=== PATIENT | female | born 1970 | race Caucasian/White ===

== ENCOUNTER 2016-12-31 21:10 | Emergency (ER) | payer SELFPAY ==
[~2016-12-31] VITALS: Ht 160 cm; Wt 82.0 kg
[~2016-12-31 21:10] MED LIST: ASPI81TA11 PO; METF500 PO; METO50TA PO; PERC5TAB12 PO; PRAV10 PO
[2016-12-31 21:11] VITALS: BP 133/68; PULSE 82; RESP 16; TEMP 97.7; O2SAT 99
--- NOTE | 2016-12-31 22:26 | PD ---
HPI Chief Complaint: Injury Time Seen by Provider: 22:00 Travel History International Travel<30 days: No Contact w/Intl Traveler<30days: No Traveled to known affect area: No History of Present Illness HPI Patient comes in for evaluation of left wrist pain ongoing for 5-6 weeks. Patient states injury initially occurred over a month ago she went to fall and caught herself with her left hand causing pain in her left wrist. Patient states she is seen at different ER approximately 3 days after initial injury had x-rays done and was told that she had sprained it. Patient was placed in a splint that she has since removed. Patient continues using her wrist in doing heavy lifting at her job. Denies any numbness and tingling, fevers, or new injuries. Pain is worse with certain movement. Patient describes pain as sharp stabbing like in nature over the ulnar aspect of her left wrist. Pain radiates proximally. History Past Medical Histgory Tetanus Vaccination: < 5 Years LMP: 12/14/16 Social History Alcohol Use: Yes (SOCIALLY) Tobacco Use: Yes (1PPD) Allergies-Medications (Allergen,Severity, Reaction): Coded Allergies: Plavix (Verified Adverse Reaction, Severe, Hives, 12/31/16) Reported Meds & Prescriptions Reported Meds & Active Scripts Active Review of Systems Except as stated in HPI: all other systems reviewed are Neg Physical Exam Narrative GENERAL: Well-developed, overly nourished, in no acute distress, and non-ill appearing. SKIN: Warm and dry. HEAD: Atraumatic. Normocephalic. EYES: Pupils equal and round. EOMI. No scleral icterus. No injection or drainage. ENT: No nasal bleeding or discharge. Mucous membranes pink and moist. NECK: Trachea midline. Supple. No nuclear rigidity. CARDIOVASCULAR: Radial pulses 2+, intact, equal bilaterally. Capillary refill less than 2 seconds. RESPIRATORY: No accessory muscle use. No respiratory distress. MUSCULOSKELETAL: No obvious deformities. No clubbing. No cyanosis. No edema. Full range of motion. Wrist: FROM and equal BL with passive flexion, extension, and pronation/supination. Capillary refill less than 2 seconds distal to injury and equal BL. FROM distal to injury and equal BL. Strength distal to injury equal BL. NV intact distal to injury. Flexion and extension of thumb equal BL. Equal strength and movement with abduction/adductions of BL fingers. Animal Ride Manager strength equal BL. No tenderness to the anatomical snuffbox. Patient reports tenderness to palpation over ulnar aspect of left wrist. NEUROLOGICAL: Awake and alert. No obvious cranial nerve deficits. Motor grossly within normal limits. Normal speech. PSYCHIATRIC: Appropriate mood and affect; insight and judgment normal. Data Data Last Documented VS Vital Signs Date Time Temp Pulse Resp B/P Pulse Ox O2 Delivery O2 Flow Rate FiO2 12/31/16 22:08 16 12/31/16 21:11 97.7 82 133/68 99 MDM Medical Screen Exam Complete: Yes Emergency Medical Condition: No Narrative Course History and physical exam findings are not consistent with an emergent medical condition. She was given the option of receiving additional care, but has declined. Therefore the appropriate counseling recommendations were discussed with the patient and she was instructed to follow-up with her primary care physician as soon as possible for reevaluation. Patient was also informed of community resources from which she can obtain additional care. She is agreeable and verbalizes an understanding of the proposed plan. The patient states she will immediately return to the emergency department if her current complaints do not improve, new symptoms arise, or emergent condition develops. Patient ambulated out of the emergency department without difficulty. Primary Impression: Encounter for medical screening examination Disposition: [facility]-ED USE ONLY Condition: Stable Christopher Odom Dec 31, 2016 22:26
== END 2016-12-31 22:18 | disposition left against medical advice (07) ==
LOC: NEPB 21:10
DX: M25.532 Pain in left wrist (principal); W18.40XD Slipping, tripping and stumbling without falling, unspecified, subsequent encounter
CPT/HCPCS: 99281

== ENCOUNTER 2017-07-22 12:24 | Emergency (ER) | payer OTHER ==
[~2017-07-22] VITALS: Ht 157.5 cm; Wt 83.5 kg
[~2017-07-22 12:24] MED LIST changes: -ASPI81TA11 PO; +LIPI20TA PO; -METF500 PO; +METF500T PO; +PANT40TA3 PO; -PRAV10 PO; +TICA1TAB PO
[2017-07-22 12:42] VITALS: BP 123/58; PULSE 74; RESP 16; TEMP 98.3; O2SAT 98
--- NOTE | 2017-07-22 14:40 | RADRPT ---
EXAM DATE/TIME: 07/22/2017 13:50 [facility] COMPARISON: No previous studies available for comparison. INDICATIONS : Right shoulder pain climbing on bed MEDICAL HISTORY : None. SURGICAL HISTORY : None. ENCOUNTER: Initial ACUITY: 3 days PAIN SCORE: 9/10 LOCATION: Right shoulder joint FINDINGS: Multiple view examination of the right shoulder demonstrates no evidence of fracture or dislocation. The glenohumeral and acromioclavicular joints are maintained. There is normal range of motion betwe en internal and external rotation. Bony mineralization is normal. CONCLUSION: Unremarkable examination of the right shoulder. Vishal Renteria Jr., MD on July 22, 2017 at 14:38 Board Certified Radiologist. This report was verified electronically.
--- NOTE | 2017-07-22 14:41 | PD ---
HPI . Right shoulder pain Chief Complaint: Injury Time Seen by Provider: 13:16 Travel History International Travel<30 days: No Contact w/Intl Traveler<30days: No Traveled to known affect area: No History of Present Illness HPI 46-year-old female presents emergency department for evaluation of right shoulder pain that first started 3 days ago when she was climbing up into a bed. Patient states she heard a loud pop and it has been painful ever since. Patient has limited range of motion of the right upper extremity with forward flexion and abduction related to pain. Pain is reproducible with palpation. Neurovascularly the right upper extremity is intact. There is no erythema, obvious deformity, ecchymosis or edema. Patient is on blood thinner Brilinta. She does bruise easily. Patient denies any other physiological complaints at this time. PFSH Past Medical History Hx Anticoagulant Therapy: Yes Arthritis: Yes (DDD) Heart Rhythm Problems: Yes (SVT) Cardiovascular Problems: Yes (PA, CAD, STENTS) Coronary Artery Disease: Yes Diabetes: Yes Patient Takes Glucophage: Yes Diminished Hearing: No Musculoskeletal: Yes (SCOLIOSIS) Immunizations Current: Yes Influenza Vaccination: Yes ?: Not LMP: LAST WEEK Past Surgical History Coronary Stent: Yes Social History Alcohol Use: No (DENIES) Tobacco Use: Yes (1PPD) Substance Use: No Allergies-Medications (Allergen,Severity, Reaction): Coded Allergies: clopidogrel (Verified Adverse Reaction, Severe, Hives, 07/22/17) Reported Meds & Prescriptions Reported Meds & Active Scripts Active Reported Percocet (Oxycodone-Acetaminophen) 5-325 mg Tab 1 Tab PO Q6H PRN Brilinta (Ticagrelor) 60 Mg Tab 60 Mg PO BID Metoprolol Tartrate 50 Mg Tab 50 Mg PO DAILY Lipitor (Atorvastatin Calcium) 20 Mg Tab 20 Mg PO HS Pantoprazole (Pantoprazole Sodium) 40 Mg Tab 40 Mg PO DAILY Metformin (Metformin HCl) 500 Mg Tab 500 Mg PO DAILY With a meal Review of Systems Except as stated in HPI: all other systems reviewed are Neg Physical Exam Narrative GENERAL: Well-nourished, well-developed 46-year-old female patient in no acute distress. Nontoxic appearing. SKIN: Focused skin assessment warm/dry. HEAD: Normocephalic. Atraumatic. EYES: No scleral icterus. No injection or drainage. NECK: Supple, trachea midline. No JVD or lymphadenopathy. CARDIOVASCULAR: Regular rate and rhythm without murmurs, gallops, or rubs. RESPIRATORY: Breath sounds equal bilaterally. No accessory muscle use. GASTROINTESTINAL: Abdomen soft, non-tender, nondistended. MUSCULOSKELETAL: Limited range of motion in the right upper extremity with full word flexion and abduction. No ecchymosis, cyanosis, or edema. BACK: Nontender without obvious deformity. No CVA tenderness. Data Data Last Documented VS Vital Signs Date Time Temp Pulse Resp B/P (MAP) Pulse Ox O2 Delivery O2 Flow Rate FiO2 07/22/17 12:42 98.3 74 16 123/58 (79) 98 Orders Orders Shoulder, Complete (>2vws) (07/22/17 13:17) Ice/Cold Pack (07/22/17 13:17) Ed Discharge Order (07/22/17 14:45) Splint Or Brace Apply/Monitor (07/22/17 14:57) MDM Medical Decision Making Medical Screen Exam Complete: Yes Emergency Medical Condition: Yes Differential Diagnosis Differential diagnoses include but not limited to contusion, dislocation, fracture, shoulder pain, septic arthritis, ligament injury, tendon injury Narrative Course 46-year-old female presents to the emergency room for evaluation of right shoulder pain that occurred 3 days ago. Shoulder x-ray ordered and pending. Ice applied to the right shoulder. X-ray of the shoulder is unremarkable. Patient states she does not want any medication for pain or an anti-inflammatory. Based on patient's symptoms, clinical presentation, radiological results, vital sign review and physical exam it is not necessary to admit the patient to the hospital or keep the patient in the emergency department for further evaluation. Patient will be given a right arm sling and discharged home with instructions to follow up with her primary care or an orthopedist. Diagnosis Primary Impression: Acute pain of right shoulder Patient Instructions: General Instructions, Shoulder Pain (ED) Additional Instructions: Please return to emergency department if your symptoms return or worsen. Follow up with your primary care provider or an orthopedist. Use sling during the day. Ensure you take the sling off occasionally and move the joint to prevent the joint from becoming stiff. May use [id number] Motrin as needed for pain or swelling. May use ice as needed for pain or swelling. Disposition: 01 DISCHARGE HOME Condition: Stable Cary Wilde Jul 22, 2017 14:41
== END 2017-07-22 15:00 | disposition home or self-care (01) ==
LOC: PHEFT 12:24
DX: M25.511 Pain in right shoulder (principal); E11.9 Type 2 diabetes mellitus without complications; Z72.0 Tobacco use; Z79.01 Long term (current) use of anticoagulants
CPT/HCPCS: 73030; 99283

== ENCOUNTER → 2017-08-18 | Day surgery (SDC) | payer OTHER ==
[~2017-08-18] VITALS: Ht 157.5 cm; Wt 83.0 kg
[~2017-08-18] MED LIST changes: +ASPI-516 CHEW; +BUPIVACAINE HCL PF 0.5% 30 ML VIAL INFIL ONE; +CHLORHEXIDINE GLUCONATE 2 % 1 PACK (2 CLOTHS) TOPICAL PRN; +FAMOTIDINE 20 MG/2 ML VIAL ONE; +INSULIN HUMAN REGULAR 1,000 UNITS/10 ML VIAL SQ PRN; +LACTATED RINGER'S 1000 ML IV PRN; +LIDOCAINE HCL 2% 20 ML VIAL INFIL ONE; +METOPROLOL TARTRATE 25 MG TAB PO PRN; +MIDAZOLAM HCL 2 MG/2 ML VIAL ONE; +NEOMYCIN/POLYMYXIN 1 ML G.U. IRRIGANT IRRIGATION ONE; +POVIDONE IODINE 5% (ANTISEPSIS KIT) 4 APPLICATIONS EACH NARE PRN; +SODIUM CHLORID 0.9% 500 ML IV PRN; +ceFAZolin 2 GM PREMIX 50 ML IV SCH
[2017-08-18 12:45] VITALS: BP 117/67; PULSE 82; RESP 16; TEMP 98; O2SAT 98
--- NOTE | 2017-08-18 13:06 | MP ---
cc: GAETANO DUEÑAS III, M.D. DATE OF SURGERY 08/18/2017 PREOPERATIVE DIAGNOSIS Right middle finger mass. PROCEDURE Right middle finger mass excisional biopsy. SURGEON Gaetano Dueñas III, MD PROCEDURE The patient was brought to the operating room, placed supine on the operating table. After adequate preop time-out and IV sedation was achieved, the right upper extremity was prepped and draped in the traditional sterile surgical fashion. The usual mixture of local anesthetic was used and 1 cc was injected in the dorsal aspect of the finger and over the proximal phalanx. The limb was exsanguinated with an Rupert wrap and a highly placed well-padded axillary tourniquet 200 mmHg for 14 minutes. A transversely oriented incision overlying the mass dorsally over the PIP joints. Blunt dissection was performed. Dorsal bridging veins were protected. The area of scar tissue within the extensor tendon was identified and debrided out and passed off the table as a specimen, as well as some hypertrophic tenosynovium deep to that. There was no other anatomic abnormality anywhere around this area. A thorough irrigation was performed. The extensor tendon was were repaired using interrupted 4-0 Vicryl sutures. Thorough irrigation again and the edges reapproximate using running 5-0 nylon. The hand and arm were thoroughly cleansed and dried. Betadine Adaptic dressings applied followed by a bulky soft dressing circumferential to follow. The patient was awakened from anesthesia. The axillary tourniquet was released and the fingers including the right middle finger became immediately soft, pink, and warm and had brisk capillary refill of less than two seconds. There was no bleeding. Hemostasis was present. The patient tolerated procedure well. MD MICHELLE Tucker III/SHEA /12:33 PM /1:02 PM
--- NOTE | 2017-08-19 18:29 | EKG ---
Date Performed: 08/18/2017 Time Performed: 09:43:15 PTAGE: 46 years EKG: Sinus rhythm NORMAL ECG NO PREVIOUS TRACING DOCTOR: Malina Sadler Interpretating Date/Time 08/19/2017 18:19:36
== END | disposition home or self-care (01) ==
LOC: PHSDC 08:46
PROVIDERS: ATTEND Orthopaedic Surgery Hand Surgery
DX: R22.31 Localized swelling, mass and lump, right upper limb (principal); I25.10 Atherosclerotic heart disease of native coronary artery without angina pectoris; I47.1 Supraventricular tachycardia
CPT/HCPCS: 01810; 26160; 88304; 93005; J0690; J2250; J3010; J7120; 88305